=== PATIENT | female | born 1970 | race Caucasian/White ===

== ENCOUNTER 2021-02-15 02:23 | Emergency (ER) | payer MEDICARE ==
[~2021-02-15] VITALS: Ht 167.6 cm; Wt 66.0 kg
[2021-02-15 03:15] LABS: BASOPHILS % 0.4 % (0.0-2.0); EOSINOPHILS % 4.3 % (0.0-5.0); HEMATOCRIT. 32.1 % (36.0-48.0); HEMOGLOBIN. 10.4 g/dL (12.0-16.0); MEAN CORPUSCULAR HEMOGLOBIN 22.4 pg (28.0-32.0); MEAN CORPUSCULAR VOLUME 69.5 fL (81.0-99.0); MEAN PLATELET VOLUME 9.3 fl (7.4-10.4); MONOCYTES % 9.6 % (2.0-8.0); NEUTROPHILS % 52.7 % (40.0-76.0); PLATELET 255 x1000/uL (130-400); RED BLOOD CELL COUNT 4.62 mill/uL (4.2-5.4); RED CELL DISTRIBUTION WIDTH 32.5 % (11.6-14.6)
[2021-02-15 03:18] LABS: PLATELET ESTIMATE NORMAL
[2021-02-15 03:23] LABS: CHLORIDE 108 mEq/L (98-107)
[2021-02-15] MEDS ORDERED: ACETAMINOPHEN 325MG TABLET PO ONE (04:00)
[2021-02-15] MEDS ORDERED: SODIUM CHLORIDE 0.9% 1,000 ML IV ONE (04:00)
[2021-02-15] MEDS ORDERED: FERR325T23 MT (05:31)
[2021-02-15 06:09] VITALS: BP 110/70
== END 2021-02-15 06:16 | disposition home or self-care (01) ==
LOC: ER 02:23
DX: D25.9 Leiomyoma of uterus, unspecified (principal); D64.9 Anemia, unspecified
CPT/HCPCS: 36415; 76830; 76856; 80053; 85025; 93005; 96360; 99285; J7030